=== PATIENT | female | born 1980 | race Caucasian/White ===

== ENCOUNTER → 2017-07-11 | Outpatient (CLI) | payer OTHER | LOC: FIMAGING 10:30 | PROVIDERS: ATTEND Obstetrics & Gynecology | DX: O99.212 Obesity complicating pregnancy, second trimester (principal); O10.912 Unspecified pre-existing hypertension complicating pregnancy, second trimester; O09.522 Supervision of elderly multigravida, second trimester; Z3A.18 18 weeks gestation of pregnancy ==

== ENCOUNTER → 2017-08-01 | Outpatient (CLI) | payer OTHER | LOC: FIMAGING 13:45 | PROVIDERS: ATTEND Obstetrics & Gynecology | DX: O99.212 Obesity complicating pregnancy, second trimester (principal); O10.912 Unspecified pre-existing hypertension complicating pregnancy, second trimester; O09.522 Supervision of elderly multigravida, second trimester; Z3A.21 21 weeks gestation of pregnancy ==

== ENCOUNTER → 2017-09-12 | Outpatient (CLI) | payer OTHER | LOC: FIMAGING 14:01 | PROVIDERS: ATTEND Obstetrics & Gynecology | DX: O09.522 Supervision of elderly multigravida, second trimester (principal); O36.62X0 Maternal care for excessive fetal growth, second trimester, not applicable or unspecified; O10.912 Unspecified pre-existing hypertension complicating pregnancy, second trimester; Z3A.27 27 weeks gestation of pregnancy ==

== ENCOUNTER → 2017-10-17 | Outpatient (CLI) | payer OTHER | LOC: FIMAGING 13:58 | PROVIDERS: ATTEND Obstetrics & Gynecology | DX: O09.523 Supervision of elderly multigravida, third trimester (principal); O26.03 Excessive weight gain in pregnancy, third trimester; O10.913 Unspecified pre-existing hypertension complicating pregnancy, third trimester; Z3A.32 32 weeks gestation of pregnancy ==